=== PATIENT | male | born 1960 | race Caucasian/White ===

== ENCOUNTER 2019-11-16 00:16 | Inpatient (IN) | payer MEDICAID ==
[~2019-11-16] VITALS: Ht 165.1 cm; Wt 59.9 kg
[2019-11-16] MEDS ORDERED: FOLIC ACID 1 MG, THIAMINE HCL 100 MG, MVI, ADULT NO.1 10 ML in DEXTROSE 5% WATER 1,000 ML IV ONE ×4 (01:00)
[2019-11-16 01:25] LABS: CHLORIDE 96 mEq/L (98-107)
[2019-11-16 01:29] LABS: ETHANOL BLOOD 169 mg/dL
[2019-11-16 01:30] LABS: BASOPHILS % 1.3 % (0.0-2.0); EOSINOPHILS % 1.3 % (0.0-5.0); HEMATOCRIT. 31.3 % (42.0-52.0); HEMOGLOBIN. 10.6 g/dL (14.0-18.0); LYMPHOCYTES % 25.5 % (20.0-50.0); MEAN CORPUSCULAR HEMOGLOBIN 30.8 pg (28.0-32.0); MEAN CORPUSCULAR VOLUME 91.1 fL (80.0-94.0); MEAN PLATELET VOLUME 6.7 fl (7.4-10.4); MONOCYTES % 7.6 % (2.0-8.0); NEUTROPHILS % 64.3 % (40.0-76.0); PLATELET 249 x1000/uL (130-400); RED BLOOD CELL COUNT 3.44 mill/uL (4.7-6.1); RED CELL DISTRIBUTION WIDTH 13.9 % (11.6-14.6)
[2019-11-16 02:28] LABS: PROTHROMBIN TIME 10.2 sec (9.6-11.0)
[2019-11-16 03:17] LABS: CLARITY URINE CLEAR (CLEAR); COLOR URINE YELLOW (YELLOW); KETONES URINE NEGATIVE (NEGATIVE); LEUKOCYTE ESTERASE URINE NEGATIVE (NEGATIVE); NITRITE URINE NEGATIVE (NEGATIVE); OCCULT BLOOD URINE 1+ (NEGATIVE); PH URINE 5.5 (4.5-8.0); PROTEIN URINE NEGATIVE (NEGATIVE); SPECIFIC GRAVITY URINE 1.007 (1.005-1.030); UROBILINOGEN URINE 0.2 E.U./dL (0.2-1.0)
[2019-11-16 03:31] LABS: *COCAINE SCREEN URINE NEGATIVE (NEGATIVE)
[2019-11-16 03:32] LABS: *AMPHETAMINES SCREEN URINE NEGATIVE (NEGATIVE); *BENZODIAZEPINES SCREEN URINE NEGATIVE (NEGATIVE); CANNABINOID URINE SCREEN NEGATIVE (NEGATIVE); METHADONE URINE SCREEN NEGATIVE (NEGATIVE); OPIATES URINE SCREEN NEGATIVE (NEGATIVE); PHENCYCLIDINE URINE SCREEN NEGATIVE (NEGATIVE)
[2019-11-16 03:33] LABS: *BARBITURATES SCREEN URINE NEGATIVE (NEGATIVE)
[2019-11-16 04:15] VITALS: BP 142/86
[2019-11-16 04:30] VITALS: BP 142/86
[2019-11-16] MEDS ORDERED: DEXTROSE 50% WATER 50ML SYRINGE IV PRN (05:15)
[2019-11-16] MEDS ORDERED: INSU100I24 SQ (05:44)
[2019-11-16] MEDS ORDERED: INSLIS SUBCUT (05:44)
[2019-11-16] MEDS: BLOOD SUGAR DIAGNOSTIC STRIP TEST SCH ×4 (07:01→21:16)
[2019-11-16] MEDS: INSULIN LISPRO 100 UNITS/ML SUBCUT SCH ×4 (07:01→21:16)
[2019-11-16] MEDS: PANTOPRAZOLE 40MG DR TABLET PO SCH (07:01)
[2019-11-16 08:00] VITALS: BP 152/95
[2019-11-16] MEDS: THIAMINE HCL 100MG TABLET PO SCH (08:51)
[2019-11-16] MEDS: FOLIC ACID 1MG TABLET PO SCH (08:51)
[2019-11-16] MEDS: MULTIVITAMINS,THER W-MINERALS TABLET PO SCH (08:51)
[2019-11-16 12:00] VITALS: BP 153/90
[2019-11-16] MEDS: CHLORDIAZEPOXIDE 25MG CAPSULE PO SCH ×2 (13:58→21:16)
[2019-11-16] MEDS ORDERED: METF-414 MT (14:54)
[2019-11-16] MEDS ORDERED: FOLI-43 PO (14:54)
[2019-11-16] MEDS ORDERED: THIA100T72 PO (14:54)
[2019-11-16] MEDS ORDERED: SITA100T11 MT (14:57)
[2019-11-16 16:00] VITALS: BP 157/94
[2019-11-16 20:00] VITALS: BP 121/80
[2019-11-17] VITALS: BP 141/93
[2019-11-17 04:00] VITALS: BP 111/70
[2019-11-17] MEDS: INSULIN LISPRO 100 UNITS/ML SUBCUT SCH ×2 (05:48→12:15)
[2019-11-17] MEDS: BLOOD SUGAR DIAGNOSTIC STRIP TEST SCH ×2 (05:48→11:34)
[2019-11-17] MEDS: CHLORDIAZEPOXIDE 25MG CAPSULE PO SCH (05:48)
[2019-11-17] MEDS: PANTOPRAZOLE 40MG DR TABLET PO SCH (05:48)
[2019-11-17 08:00] VITALS: BP 109/71
[2019-11-17] MEDS: THIAMINE HCL 100MG TABLET PO SCH (08:57)
[2019-11-17] MEDS: MULTIVITAMINS,THER W-MINERALS TABLET PO SCH (08:57)
[2019-11-17] MEDS: FOLIC ACID 1MG TABLET PO SCH (08:57)
[2019-11-17 11:51] VITALS: BP 130/81
[2019-11-17 12:00] VITALS: BP 136/81
[2019-11-17 12:01] LABS: BASOPHILS % 2.4 % (0.0-2.0); EOSINOPHILS % 5.9 % (0.0-5.0); HEMATOCRIT. 31.3 % (42.0-52.0); HEMOGLOBIN. 10.4 g/dL (14.0-18.0); LYMPHOCYTES % 24.3 % (20.0-50.0); MEAN CORPUSCULAR HEMOGLOBIN 30.4 pg (28.0-32.0); MEAN CORPUSCULAR VOLUME 91.9 fL (80.0-94.0); MONOCYTES % 13.4 % (2.0-8.0); PLATELET 224 x1000/uL (130-400); RED BLOOD CELL COUNT 3.41 mill/uL (4.7-6.1); RED CELL DISTRIBUTION WIDTH 14.1 % (11.6-14.6)
[2019-11-17 12:04] LABS: CHLORIDE 96 mEq/L (98-107)
[2019-11-17 12:10] LABS: PHOSPHORUS 2.5 mg/dL (2.5-4.9)
[2019-11-18] MEDS ORDERED: FAMOTIDINE 20MG TABLET PO SCH (06:45)
== END 2019-11-17 13:25 | disposition home or self-care (01) | DRG 52 ==
LOC: ER 00:16 → EDBD 00:16 → 5WST 01:43 → EDBEDREQ 01:59 → ENRESERV 03:27
PROVIDERS: ADMIT Internal Medicine; ATTEND Internal Medicine
DX: G93.41 Metabolic encephalopathy (principal); E11.649 Type 2 diabetes mellitus with hypoglycemia without coma; Y90.9 Presence of alcohol in blood, level not specified; F10.129 Alcohol abuse with intoxication, unspecified; E87.1 Hypo-osmolality and hyponatremia; E87.8 Other disorders of electrolyte and fluid balance, not elsewhere classified; D64.9 Anemia, unspecified; D72.819 Decreased white blood cell count, unspecified; Z59.0 Homelessness; Z71.41 Alcohol abuse counseling and surveillance of alcoholic
CPT/HCPCS: 36415; 71045; 80048; 80053; 80305; 80320; 81003; 82962; 83036; 83735; 83880; 84100; 84484; 85025; 93005; 99285; J1815; J3411; J3490; J7070; G0480